=== PATIENT | female | born 1960 | race Caucasian/White ===

== ENCOUNTER 2017-01-05 18:08 | Emergency (ER) | payer SELFPAY ==
[~2017-01-05] VITALS: Ht 165.1 cm; Wt 80.5 kg
[2017-01-05 18:10] VITALS: Ht 165.1 cm; Wt 80.5 kg
[2017-01-05] MEDS ORDERED: AZIT500T3 PO (18:52)
[2017-01-05] MEDS ORDERED: LOPE2CAP PO (18:52)
--- NOTE | 2017-01-05 19:04 | ERD ---
ER Documentation Chief Complaint Date/Time DATE: 01/05/17 TIME: 19:01 Chief Complaint Complains of diarrhea x 3 days HPI 46 yo female comes in with diarrhea for 3 days after eating [place] 4 nights ago she ate at a restaurant. Patient states that she has up to 5 episodes of nonbloody non-mucousy stools each day. She has no abdominal pain, no fevers and no vomiting. No blood in stools. She denies recent travel. ROS All systems reviewed and are negative except as per history of present illness. Medications Home Meds Active Scripts Loperamide Hcl* (Imodium*) 2 Mg Capsule, 2 MG PO .AFTER EA LOOSE BM Y for DIARRHEA, #10 TAB Prov:ISABEL HAMMOND PA-C 01/05/17 Azithromycin* (Zithromax*) 500 Mg Tablet, 500 MG PO DAILY for 3 Days, TAB Prov:ISABEL HAMMOND PA-C 01/05/17 Allergies Allergies: Coded Allergies: No Known Allergy (Unverified , 01/05/17) PMhx/Soc Medical and Surgical Hx: pt denies Medical Hx History of Surgery: Yes (c/s x3) Anesthesia Reaction: No Hx Neurological Disorder: No Hx Respiratory Disorders: No Hx Cardiac Disorders: No Hx Psychiatric Problems: No Hx Miscellaneous Medical Probl: No Hx Alcohol Use: No Hx Substance Use: No Hx Tobacco Use: No Physical Exam Vitals Vital Signs Date Time Temp Pulse Resp B/P Pulse Ox O2 Delivery O2 Flow Rate FiO2 01/05/17 18:10 89 20 126/68 95 Temperature is 98.9 Physical Exam General: Well-developed, well-nourished. The patient appears in no acute distress. HEENT: Head is normocephalic, atraumatic. No scleral icterus. Neck: Supple. Nontender. Lungs: Clear to auscultation. Normal air movement. Heart: Regular rate and rhythm. S1 and S2 are normal. No murmurs, gallops, or rubs. Abdomen: Soft, nontender, nondistended. Bowel sounds are normoactive. Extremities: No clubbing or cyanosis. Normal pulses. Moving extremities x 4. No weakness. Neurologic: Alert and oriented 3. No focal deficits. Skin: Normal turgor. No rash or lesions. Procedures/MDM 56-year-old female comes in with diarrhea for the past 4 days after eating red meat. Patient reports no pain, no blood in stools and her vitals are reviewed and stable. She is afebrile, does not have any tachycardia or signs of dehydration. Patient will be treated for foodborne illness given her history. I doubt dehydration, colitis, intra-abdominal abscess, diverticulitis. Patient's blood pressure was elevated (>120/80) but appears stable without evidence of hypertension emergency or urgency. The patient was counseled about the risks of hypertension and urged to pursue outpatient monitoring and therapy within a week with their primary care physician. Departure Diagnosis: Primary Impression: Diarrhea Condition: Good Patient Instructions: Treating Diarrhea Additional Instructions: Call your primary care doctor TOMORROW for an appointment during the next 1-2 days.See the doctor sooner or return here if your condition worsens before your appointment time. ISABEL HAMMOND PA-C Jan 05, 2017 19:04
== END 2017-01-05 18:57 | disposition home or self-care (01) ==
LOC: FTE 18:08
DX: R19.7 Diarrhea, unspecified (principal)
CPT/HCPCS: 99283

== ENCOUNTER 2017-10-12 12:38 | Emergency (ER) | END 2017-10-12 13:45 | disposition home or self-care (01) ==